=== PATIENT | male | born 1990 | race American Indian/Alaskan Native ===

== ENCOUNTER 2020-01-22 16:53 | Emergency (ER) | payer OTHER ==
[~2020-01-22] VITALS: Ht 182.9 cm; Wt 70.7 kg
[2020-01-22 17:22] VITALS: BP 101/71
[2020-01-22] MEDS ORDERED: PRED20TA PO (17:43)
[2020-01-22] MEDS ORDERED: dexamethasone 4mg/ml inj IM ONE (17:45)
== END 2020-01-22 18:01 | disposition home or self-care (01) ==
LOC: ER 16:54
DX: L23.89 Allergic contact dermatitis due to other agents (principal); R21 Rash and other nonspecific skin eruption; R50.9 Fever, unspecified; Z79.899 Other long term (current) drug therapy
CPT/HCPCS: 96372; 99283; J1100